=== PATIENT | female | born 1995 | race Caucasian/White ===

== ENCOUNTER 2020-09-17 18:12 | Emergency (ER) | payer OTHER ==
[~2020-09-17] VITALS: Ht 172.7 cm; Wt 81.6 kg
--- NOTE | 2020-09-17 18:51 | NUR ---
URINE COLLECTED AND TAKEN TO LAB
[2020-09-17 18:53] VITALS: BP_SYST 125; BP_DIAS 78; BP_DIAS 88
--- NOTE | 2020-09-17 19:08 | ER.PDOC ---
General Chief Complaint: Female Urogenital Problems Stated Complaint: FEMALE Time seen by MD: 18:49 Source: patient Exam Limitations: no limitations History of Present Illness Initial Comments Patient presents for UTI. She is 11 weeks and tested positive for UTI with her OB on Monday. She was started on cephalosporin. She came here for and developed hives and SOB. She stopped the Abx an took benadryl. Those sx have resolved. She called her OB and was supposed to have a different Abx called to nearby pharmacy but this was not done so she is her for prescription. She is unsure if a culture was ordered Monday. No fever, flank pain or other complaints Allergies: Coded Allergies: cefuroxime (Verified Allergy, Unknown, 09/17/20) Reviewed Nursing Reviewed: Vital Signs, Abn. Noted, Nursing Assessment Review of Systems Constitutional: no symptoms reported Respiratory: see HPI Cardiovascular: no symptoms reported Gastrointestinal: no symptoms reported Genitourinary: see HPI Skin: see HPI Physical Exam General Appearance: No Apparent Distress, WD/WN EENT: eyes nml inspection, nml ENT inspection Neck: nml inspection, non-tender Cardiovascular/Respiratory: Regular Rate, Rhythm, No M/R/G, Normal Peripheral Pulses Abdomen: Normal Bowel Sounds, Non Tender, Soft Back: nml inspection (no CVA tenderness) Results/Orders Results/Orders Orders - NENA SIN MD Urinalysis (09/17/20 18:51) Urine Culture (09/17/20 18:51) Progress Progress will place on amoxicillin. She will call her OB tomorrow to see if there was a culture and if so if this is sensitive. If there is resistance a different prescription should be called in. She reports that she has had amoxil previously with no reaction. if she does develop a reaction she will stop, take benadryl and come in immediately if no improvement ER DEPART Departure Time of Disposition: 19:07 Disposition: 01 HOME, SELF-CARE Impression: Primary Impression: UTI (urinary tract infection) during Condition: Stable Referrals: PCP,UNKNOWN (PCP) PRIMARY CARE PROVIDER Comments amox 500mg TID for 7 days Duration or Time Spent with Pa: NENA ROJAS MD Sep 17, 2020 19:08
[2020-09-17 19:28] LABS: APPEARANCE,URINE CLEAR (CLEAR); BILIRUBIN,URINE NEGATIVE (NEGATIVE); UA COLOR YELLOW (YELLOW); UROBILINOGEN,URINE NORMAL (NEGATIVE)
== END 2020-09-17 19:24 | disposition home or self-care (01) ==
LOC: ER 18:12
DX: O23.41 Unspecified infection of urinary tract in pregnancy, first trimester (principal); Z88.1 Allergy status to other antibiotic agents; Z3A.11 11 weeks gestation of pregnancy
CPT/HCPCS: 81000; 87086; 99283